=== PATIENT | male | born 1985 | race Caucasian/White ===

== ENCOUNTER 2016-12-06 19:48 | Emergency (ER) | payer MEDICAID ==
[~2016-12-06] VITALS: Ht 170.2 cm; Wt 70.0 kg
[2016-12-06 19:51] VITALS: Ht 170.2 cm; Wt 70.0 kg
[2016-12-06] MEDS ORDERED: SOD CHLORIDE 0.9% 1,000 ML IV STA (19:59)
[2016-12-06] MEDS ORDERED: LEVETIRACETAM 1000 MG (PMX) 100 ML IVPB ONE (20:00)
[2016-12-06 20:10] LABS: ADD SCAN DIFF NO
[2016-12-06 20:12] LABS: BASOPHIL # 0.1 10^3/ul (0.0-0.1); BASOPHILS % 0.8 % (0.0-2.0); EOSINOPHILS # 0.2 10^3/ul (0.0-0.5); EOSINOPHILS % 2.3 % (0.0-7.0); HEMATOCRIT 46.6 % (42.0-52.0); HEMOGLOBIN 15.2 g/dl (14.0-18.0); LYMPHOCYTES # 3.3 10^3/ul (0.8-2.9); LYMPHOCYTES % 34.5 % (15.0-51.0); MEAN CORPUSCULAR HEMOGLOBIN 28.7 pg (29.0-33.0); MEAN CORPUSCULAR HGB CONC 32.6 g/dl (32.0-37.0); MEAN CORPUSCULAR VOLUME 87.9 fl (82.0-101.0); MEAN PLATELET VOLUME 8.4 fl (7.4-10.4); MONOCYTE # 0.7 10^3/ul (0.3-0.9); NEUTROPHIL # 5.2 10^3/ul (1.6-7.5); PLATELET COUNT 291 10^3/UL (140-415); RED CELL DISTRIBUTION WIDTH 12.4 % (11.5-14.5); WHITE BLOOD COUNT 9.5 10^3/ul (4.8-10.8)
[2016-12-06 20:37] LABS: CALCIUM 9.4 mg/dl (8.4-10.2); CREATININE 0.89 mg/dl (0.61-1.24); POTASSIUM 4.2 mmol/L (3.5-5.1)
--- NOTE | 2016-12-06 20:38 | ERD ---
ER Documentation Chief Complaint Date/Time DATE: 12/06/16 TIME: 20:36 Chief Complaint witnessed tonic-clonic Sz while visiting in post-, hx epilepsy HPI Patient is a 31-year-old male with seizures who presents with a seizure. The patient had a code green called overhead as he was visiting his who just had a baby in the hospital. He had a seizure. He did not take his medications this morning. He did not hit his head. He is now back to his baseline per family. His primary doctor is at [facility]. Upon review of old medical records this is the patient's first visit to the emergency department. He denies fevers. ROS All systems reviewed and are negative except as per history of present illness. Allergies Allergies: Coded Allergies: No Known Drug Allergies (Verified Allergy, Unknown, 12/06/16) PMhx/Soc Positive for seizures FmHx Family History: No diabetes Physical Exam Vitals Vital Signs Date Time Temp Pulse Resp B/P Pulse Ox O2 Delivery O2 Flow Rate FiO2 12/06/16 19:51 98.4 111 26 135/95 100 Physical Exam Const: No acute distress Head: Atraumatic Eyes: Normal Conjunctiva ENT: Normal External Ears, Nose and Mouth. Neck: Full range of motion..~ No meningismus. Resp: Clear to auscultation bilaterally Cardio: Tachycardic rate without murmur Abd: Soft, non tender, non distended. Normal bowel sounds Skin: No petechiae or rashes Back: No midline or flank tenderness Ext: No cyanosis, or edema Neur: Awake and alert Psych: Normal Mood and Affect Result Diagram: 12/06/161999 Results 24 hrs Laboratory Tests Test 12/06/16 20:00 White Blood Count 9.510^3/ul Red Blood Count 5.3010^6/ul Hemoglobin 15.2g/dl Hematocrit 46.6% Mean Corpuscular Volume 87.9fl Mean Corpuscular Hemoglobin 28.7pg Mean Corpuscular Hemoglobin Concent 32.6g/dl Red Cell Distribution Width 12.4% Platelet Count 43377^3/UL Mean Platelet Volume 8.4fl Neutrophils % 55.0% Lymphocytes % 34.5% Monocytes % 7.0% Eosinophils % 2.3% Basophils % 0.8% Nucleated Red Blood Cells % 0.0/100WBC Neutrophils # 5.210^3/ul Lymphocytes # 3.310^3/ul Monocytes # 0.710^3/ul Eosinophils # 0.210^3/ul Basophils # 0.110^3/ul Nucleated Red Blood Cells # 0.010^3/ul Current Medications Medications (Trade) Dose Ordered Sig/Melany Route PRN Reason Start Time Stop Time Status Last Admin Dose Admin Sodium Chloride 1,000 ml @ 1,000 mls/hr Q1H STAT IV 12/06/16 19:59 12/06/16 20:58 12/06/16 20:07 Levetiracetam (Keppra 1,000mg/ 100ml (Pmx)) 100 ml @ 400 mls/hr ONCE ONCE IVPB 12/06/16 20:00 12/06/16 20:14 DC 12/06/16 20:20 Procedures/MDM Patient is a 31-year-old male presents with acute on chronic seizure. The patient has a normal CBC. Electrolytes are pending. If his electrodes are normal I believe outpatient management would be appropriate. I doubt intracranial hemorrhage or mass. I doubt meningitis. The patient will be given Keppra 1 g IV to load his Keppra and I told him not to miss any doses of his medications in the future. He can return for any worsening symptoms. Departure Diagnosis: Primary Impression: Seizure Condition: Fair Patient Instructions: Seizure, Recurrent [Adult] Referrals: Your doctor Additional Instructions: Llame al doctor MAANA y ramon hua EFREN PARA DENTRO DE 1-2 HOPPER.Dgale a la secretaria que nosotros le instruimos hacer esta efren.Avise o llame si ross condicin se empeora antes de la efren. Regresa aqui si peor o no mejor. VINCENT OWENS MD Dec 06, 2016 20:37
[2016-12-06 20:51] VITALS: BP 140/80; PULSE 86; RESP 16
[2016-12-06] MEDS ORDERED: LEVE-5 PO (21:00)
== END 2016-12-06 21:05 | disposition home or self-care (01) ==
LOC: E/R 19:48
DX: R56.9 Unspecified convulsions (principal); R40.2142 Coma scale, eyes open, spontaneous, at arrival to emergency department; R40.2252 Coma scale, best verbal response, oriented, at arrival to emergency department; R40.2362 Coma scale, best motor response, obeys commands, at arrival to emergency department
CPT/HCPCS: 36415; 80048; 85025; 96365; J1953; J7030; Z7502

== ENCOUNTER 2017-04-22 05:12 | Inpatient (IN) | payer MEDICAID ==
[~2017-04-22] VITALS: Ht 172.7 cm; Wt 65.9 kg
[~2017-04-22 05:12] MED LIST: LEVE-5 PO
[2017-04-22] MEDS ORDERED: ADENOSINE ONE (05:32)
[2017-04-22] MEDS ORDERED: SOD CHLORIDE 0.9% 1,000 ML IV STA (05:40)
[2017-04-22 05:42] VITALS: TEMP 98.1
[2017-04-22] MEDS ORDERED: MAGNESIUM SULFATE 2 GM/50 ML 50 ML IVPB ONE (06:00)
[2017-04-22] MEDS ORDERED: METO-335 PO (06:35)
[2017-04-22] MEDS ORDERED: ACET-141 PO (06:36)
--- NOTE | 2017-04-22 06:41 | ERD ---
ER Documentation Chief Complaint Chief Complaint palpitation HPI This is a 32-year-old male with a history of SVT on metoprolol, seizures who is presenting with palpitations this morning. He felt chest pressure, palpitations , and he could not break it on his own, so he came to the ER for further evaluation. When he initially arrived, the patient's heart rate was 212. However, prior to any intervention, the patient's heart rate broke to the 80s on its own. The patient initially endorsed feeling anxious, but this too has resolved. The patient did not have any trouble breathing. He was never diaphoretic. The patient denies lightheadedness or dizziness. The patient denies feeling sick recently. The patient denies fever or chills. The patient has had no headache or vision changes. The patient denies abdominal pain or changes to bowel movements or urination. The patient has had no focal deficits. The patient has had no weakness or numbness or tingling to the face or extremities. ROS All systems reviewed and are negative except as per history of present illness. Medications Home Meds Reported Medications Acetaminophen* (Acetaminophen*) 500 MG Extra Strength Tablet, 500 MG PO Q4H Y for PAIN AND OR ELEVATED TEMP, TAB 04/22/17 Metoprolol Succinate* (Toprol XL*) Unknown Strength Tab.sr.24h, PO DAILY, #30 TAB 04/22/17 Levetiracetam* (Keppra*) 500 Mg Tablet, 500 MG PO DAILY, TAB 12/06/16 Allergies Allergies: Coded Allergies: No Known Drug Allergies (Unverified Allergy, Unknown, 04/22/17) PMhx/Soc History of Surgery: No Anesthesia Reaction: No Hx Neurological Disorder: Yes (seizure) Hx Respiratory Disorders: No Hx Cardiac Disorders: Yes (hx of SVT, HTN) Hx Psychiatric Problems: No Hx Miscellaneous Medical Probl: No Hx Alcohol Use: No Hx Substance Use: No Hx Tobacco Use: No Smoking Status: Never smoker FmHx Family History: No diabetes Physical Exam Vitals Vital Signs Date Time Temp Pulse Resp B/P Pulse Ox O2 Delivery O2 Flow Rate FiO2 04/22/17 08:00 71 19 121/85 100 04/22/17 05:42 98.1 78 26 110/81 95 Room Air 04/22/17 05:15 97.3 212 20 133/70 99 Physical Exam Const: No apparent distress, well-developed, well-nourished Head: Atraumatic Eyes: Normal Conjunctiva. Extraocular movements intact. ENT: Normal External Ears, Nose and Mouth. Neck: Full range of motion. ~ No meningismus. Resp: Clear to auscultation bilaterally Cardio: Regular rate and rhythm, no murmurs Abd: Soft, non tender, non distended. Normal bowel sounds Skin: No petechiae or rashes Back: No midline or flank tenderness Ext: No cyanosis, or edema Neur: Awake and alert, oriented 4. Cranial nerves intact. No facial droop. Normal strength and sensation in all extremities. Coordination with finger to nose normal. Psych: Normal Mood and Affect Result Diagram: 04/22/1762904/22/17629 Results 24 hrs Laboratory Tests Test 04/22/17 06:30 04/22/17 06:56 White Blood Count 13.910^3/ul Red Blood Count 4.8410^6/ul Hemoglobin 13.8g/dl Hematocrit 42.0% Mean Corpuscular Volume 86.8fl Mean Corpuscular Hemoglobin 28.5pg Mean Corpuscular Hemoglobin Concent 32.9g/dl Red Cell Distribution Width 12.8% Platelet Count 88707^3/UL Mean Platelet Volume 8.7fl Neutrophils % 84.2% Lymphocytes % 11.0% Monocytes % 3.7% Eosinophils % 0.3% Basophils % 0.3% Nucleated Red Blood Cells % 0.0/100WBC Neutrophils # 11.710^3/ul Lymphocytes # 1.510^3/ul Monocytes # 0.510^3/ul Eosinophils # 0.010^3/ul Basophils # 0.010^3/ul Nucleated Red Blood Cells # 0.010^3/ul Sodium Level 144mmol/L Potassium Level 4.0mmol/L Chloride Level 106mmol/L Carbon Dioxide Level 25mmol/L Anion Gap 17 Blood Urea Nitrogen 16mg/dl Creatinine 1.03mg/dl Glucose Level 109mg/dl Calcium Level 8.7mg/dl Total Bilirubin 0.2mg/dl Direct Bilirubin 0.00mg/dl Indirect Bilirubin 0.2mg/dl Aspartate Amino Transf (AST/SGOT) 35IU/L Alanine Aminotransferase (ALT/SGPT) 43IU/L Alkaline Phosphatase 71IU/L Troponin I 0.359ng/ml Total Protein 7.0g/dl Albumin 4.3g/dl Globulin 2.70g/dl Albumin/Globulin Ratio 1.59 Lipase 208U/L Urine Color YELLOW Urine Clarity SLIGHTLY CLOUDY Urine pH 5.0 Urine Specific [place] 1.024 Urine Ketones NEGATIVEmg/dL Urine Nitrite NEGATIVEmg/dL Urine Bilirubin NEGATIVEmg/dL Urine Urobilinogen 1+mg/dL Urine Leukocyte Esterase NEGATIVELeu/ul Urine Microscopic RBC 0/HPF Urine Microscopic WBC 2/HPF Urine Bacteria FEW/HPF Urine Granular Casts FEW/HPF Urine Mucus FEW/HPF Urine Hemoglobin NEGATIVEmg/dL Urine Glucose NEGATIVEmg/dL Urine Total Protein 1+mg/dl Current Medications Medications (Trade) Dose Ordered Sig/Melany Route PRN Reason Start Time Stop Time Status Last Admin Dose Admin Sodium Chloride 1,000 ml @ 1,000 mls/hr Q1H STAT IV 04/22/17 05:40 04/22/17 06:39 DC 04/22/17 06:15 Magnesium Sulfate (Magnesium Sulfate 2 Gm/50 ml) 50 ml @ 25 mls/hr ONCE ONCE IVPB 04/22/17 06:00 04/22/17 07:59 DC 04/22/17 06:35 Aspirin (Aspirin) 324 mg ONCE ONCE PO 04/22/17 08:00 04/22/17 08:01 DC 04/22/17 08:05 Ondansetron HCl (Zofran Inj) 4 mg ER BRIDGE PRN IV NAUSEA AND/OR VOMITING 04/22/17 08:30 04/23/17 08:29 Acetaminophen (Tylenol Tab) 650 mg ER BRIDGE PRN PO MILD PAIN/FEVER 04/22/17 08:30 04/23/17 08:29 IV Flush (NS 3 ml) 3 ml PER PROTOCOL IV 04/22/17 09:30 Ondansetron HCl (Zofran Inj) 4 mg Q6H PRN IV NAUSEA AND/OR VOMITING 04/22/17 09:30 Acetaminophen (Tylenol Tab) 650 mg Q6H PRN PO PAIN LEVEL 1-3 OR FEVER 04/22/17 09:30 Acetaminophen/ Hydrocodone Bitart ([place] (5/325)) 1 tab Q6H PRN PO MODERATE PAIN LEVEL 4-6 04/22/17 09:30 Morphine Sulfate (morphine) 2 mg Q4H PRN IV SEVERE PAIN LEVEL 7-10 04/22/17 09:30 Docusate Sodium (Colace) 100 mg Q12H PRN PO CONSTIPATION 04/22/17 09:30 Magnesium Hydroxide (Milk Of Mag) 30 ml DAILY PRN PO CONSTIPATION 04/22/17 09:30 Sodium Biphosphate/ Sodium Phosphate (Fleet Enema) 133 ml DAILY PRN [place] CONSTIPATION 04/22/17 09:30 Heparin Sodium (Porcine) 5000 unit 5,000 unit Q12 SC 04/22/17 21:00 Sodium Chloride (1/2 NS) 1,000 ml @ 75 mls/hr [id number] IV 04/22/17 09:10 Lorazepam (Ativan) 0.5 mg Q6H PRN IV ANXIETY 04/22/17 09:30 Albuterol/ Ipratropium (Duoneb) 3 ml Q4H RESP THERAPY PRN HHN SHORTNESS OF BREATH 04/22/17 09:30 Hydralazine HCl (Apresoline) 10 mg Q6H PRN IV ELEVATED BLOOD PRESSURE 04/22/17 09:30 Clonidine (Catapres) 0.1 mg Q6H PRN PO ELEVATED BLOOD PRESSURE 04/22/17 09:30 Nitroglycerin (Nitroglycerin (Sl Tab) 0.4 Mg) 1 tab Q5M PRN SL ANGINA 04/22/17 09:30 Levetiracetam (Keppra) 500 mg DAILY PO 04/23/17 09:00 Metoprolol Succinate (Toprol Xl) 25 mg BID PO 04/22/17 21:00 Procedures/MDM MDM Patient's presentation warrants further investigation. Patient has a history of SVT, which broke on its own. We will obtain blood work to evaluate for metabolic etiology. An EKG was obtained before and after the patient's rhythm broke. Chest x-ray will also be obtained. The patient currently feels well. LABS The patient's blood work was obtained and reviewed. The patient seemed shows mild leukocytosis with left shift. That said, the patient is afebrile, and I do not suspect a systemic infection. He has no infectious symptoms at this time. The patient is mildly anemic today, which does not require emergent treatment. The patient's platelet count is unremarkable. The patient's CMP shows no signs of metabolic or electrolyte abnormality. The patient has normal renal and hepatic function testing. Trop elevated at 0.359. EKG EKG read by me at 05:22: Rate/Rhythm: SVT at a rate of 209 Intervals: No obvious P wave, QRS and QTc unremarkable [place]: Left shifted Impression: SVT, No evidence of ischemia. EKG read by me at 05:33: Rate/Rhythm: Regular rate and rhythm at a rate of 80bpm Intervals: Normal [place]: Left shifted TWI in leads I and aVL, no other lateral leads. ?Peaked [place] in V3-4 Incomplete RBBB LVH with Repolarization abnormality IMAGING CXR FINDINGS: The cardiac silhouette is normal. No focal infiltrates are noted. There is mild nonspecific prominence of pulmonary markings. No pneumothorax is noted. No hilar abnormalities are identifiable. IMPRESSION: 1. No focal infiltrates noted. 2. Mild nonspecific prominence of pulmonary markings. Electronically viewed and signed by .aJce Otoole MD, MD on 04/22/2017 07: 57 TREATMENT/DISPOSITION The patient does not appear to have been evaluated here for this in the past. I do suspect demand ischemia given that he was in SVT for possibly 3 hours, I do not have any previous EKGs to compare these EKGs today. The patient has an elevated troponin with ST depressions in leads I and aVL. I do feel that this requires further evaluation in the hospital. The patient will be admitted for further evaluation and management. The patient was given aspirin in the emergency department. The patient's vital signs remained stable throughout assessment after his SVT broke. The patient be admitted to the panel service as his insurance stipulates. Dr. Harry Montaño accepted the patient at 8:23 AM on April 22, 2017. Departure Diagnosis: Primary Impression: Paroxysmal SVT (supraventricular tachycardia) Additional Impression: Heart palpitations Condition: TANNA Kearns MD Apr 22, 2017 06:41
--- NOTE | 2017-04-22 07:57 | RADRPT ---
PROCEDURE: Chest x-ray CLINICAL INDICATION: Infiltrate. Congestion TECHNIQUE: One-view frontal. COMPARISON: None available FINDINGS: The cardiac silhouette is normal. No focal infiltrates are noted. There is mild nonspecific prominence of pulmonary markings. No pneumothorax is noted. No hilar abnormalities are identifiable. IMPRESSION: 1. No focal infiltrates noted. 2. Mild nonspecific prominence of pulmonary markings. RPTAT: HGSG .Jace Otoole MD, MD Date Time Electronically viewed and signed by .Jace Otoole MD, on 04/22/2017 07:57 .G/
[2017-04-22] MEDS ORDERED: ASPIRIN 81 MG TAB PO ONE (08:00)
[2017-04-22] MEDS ORDERED: ACETAMINOPHEN 325 MG TAB PO PRN ×2 (08:30→09:30)
[2017-04-22] MEDS ORDERED: ONDANSETRON 4 MG INJ IV PRN ×2 (08:30→09:30)
[2017-04-22] MEDS: SOD CHLORIDE 0.45% 1,000 ML IV SCH (09:10)
[2017-04-22] MEDS ORDERED: NACL 0.9% 3 ML SYG IV SCH (09:30)
[2017-04-22] MEDS ORDERED: NA PHOSPHATE/BIPHOS 133 ML ENEMA PR PRN (09:30)
[2017-04-22] MEDS ORDERED: ALBUTEROL/IPRATROPIUM (NEB) 3 ML AMP HHN PRN (09:30)
[2017-04-22] MEDS ORDERED: NITROGLYCERIN (SL) 0.4 MG TAB SL PRN (09:30)
[2017-04-22] MEDS ORDERED: HYDROCODONE/APAP (5/325) TAB PO PRN (09:30)
[2017-04-22] MEDS ORDERED: LORAZEPAM 2 MG INJ IV PRN (09:30)
[2017-04-22] MEDS ORDERED: MAGNESIUM HYDROXIDE 30ML CUP PO PRN (09:30)
[2017-04-22] MEDS ORDERED: DOCUSATE SODIUM 100 MG CAP PO PRN (09:30)
[2017-04-22] MEDS ORDERED: morphine 2 MG INJ IV PRN (09:30)
[2017-04-22] MEDS ORDERED: hydrALAzine 20 MG INJ IV PRN (09:30)
[2017-04-22 11:45] VITALS: Ht 172.7 cm; Wt 65.9 kg
[2017-04-22 11:46] VITALS: BP 136/79; PULSE 65; RESP 20
[2017-04-22] MEDS ORDERED: ASPIRIN (EC) 81 MG TAB PO SCH (14:30)
[2017-04-22] MEDS ORDERED: ENOXAPARIN 100 MG/ML SYG SC SCH (15:30)
--- NOTE | 2017-04-22 16:11 | HP ---
DATE OF ADMISSION: 04/22/2017 CHIEF COMPLAINT: Chest pressure and palpitation. HISTORY OF PRESENT ILLNESS: A 32-year-old male with past medical history of seizure, possible hypertension, and prior SVT, who was feeling palpitations and chest pressure that began 24 hours ago. He had some vomiting symptoms, nonbilious, nonbloody. Denied any nausea. No shortness of breath. No diarrhea or constipation. No upper or lower GI bleeding. No abdominal pain. No headaches or dizziness. He was concerned though about his palpitations and chest pressure and he decided to come into the ER. When he initially arrived, his heart rate was found to be in the 200 to 210 range without any intervention. However, the patient's heart rate came down to around 80 on its own. He was thought to be in SVT, but again, this appeared to break by itself. No sweating symptoms as well. The patient states he was last treated at [facility]. He believes he made a visit to the ER about 3 months ago and has been taking as needed metoprolol at home. He does not take it every day, and when these symptoms began 24 hours, he also took a dose of metoprolol that did not relieve his symptoms. PAST MEDICAL HISTORY: As above. ALLERGIES: NO KNOWN DRUG ALLERGIES. MEDICATIONS: Home medications, Toprol XL unknown strength 1 tab daily p.r.n., Tylenol 500 mg q.4 p.r.n., Keppra 500 mg daily. PAST SURGICAL HISTORY: None. SOCIAL HISTORY: Negative for smoking, drinking, or IV drug abuse. He does drink 1 cup of coffee, he has been doing that every day for many years. FAMILY HISTORY: Noncontributory. PHYSICAL EXAMINATION: VITAL SIGNS: Today, T-max 98.1, pulse 78 to 212, respirations 19 to 26, blood pressure 110 to 133 systolic over 81 to 70 20 diastolic, sating at 95 to 99 percent on room air. GENERAL: The patient is lying in bed, answers question appropriately, no acute distress. HEENT: Pupils equal, round, react to light. Extraocular muscles intact. NECK: Supple. No thyromegaly. LUNGS: Clear to auscultation bilaterally. CARDIOVASCULAR: S1, S2 heard. No rubs or gallops. ABDOMEN: Soft, nontender, nondistended. Normal bowel sounds. No rebound or guarding. MUSCULOSKELETAL: No lower extremity bilaterally. NEUROLOGIC: No focal deficits. LABORATORY DATA: WBC 13.9, hemoglobin 13.8, hematocrit 42.0, platelets of 241. Comprehensive metabolic panel is normal. First troponin is elevated at 0.359, 2nd is 3.76. He had chest x- ray that showed no focal infiltrates. ASSESSMENT AND PLAN: A 32-year-old male coming in with chest pressure and palpitations with signs of supraventricular tachycardia and possible non-ST elevation myocardial infarction. 1. Palpitations, again likely secondary to patient's supraventricular tachycardia and possibly non-ST elevation myocardial infarction. Will admit the patient to telemetry floor and get a cardiology consult. I am going to put him on Lovenox 1 mg/kg b.i.d. Consider high-dose aspirin. Trend his troponins as well. Put him on high dose Lipitor, and also put him on beta danita, nitroglycerin and morphine p.r.n. as well. Oxygen as needed. High dose aspirin. Check TSH, A1c, lipid panel. Continue monitor on telemetry. Follow Cardiology recommendations. Check a 2D echocardiogram as well. 2. History of seizures. Continue Keppra. No signs of any seizure activity. 3. Hypertension. Blood pressure is presently stable, see number 1. 4. Continue current cardiac medications. Dictated By: Alexys Damon MD /dago/lucianoc /Document#: [id number]
[2017-04-22 16:50] VITALS: BP 110/70; PULSE 86; RESP 20
[2017-04-22 17:50] VITALS: BP 120/83; PULSE 75; RESP 20
--- NOTE | 2017-04-22 18:13 | CONS ---
Date/Time of Note Date/Time of Note DATE: 04/22/17 TIME: 18:04 Assessment/Plan Assessment/Plan Chief Complaint/Hosp Course Assessment: NSTEMI Paroxysmal supraventricular tachycardia Hypertension Seizure disorder Recommendations: -continue full anticoagulation with Lovenox -continue aspirin at 325mg daily -continue atorvastatin 80mg daily, follow up lipid panel -continue metoprolol 25mg BID -follow up transthoracic echocardiogram -arrange coronary angiography Problems: Consultation Date/Type/Reason Admit Date/Time Apr 22, 2017 at 11:28 Type of Consultation: Cardiology Reason for Consultation elevated troponin, supraventricular tachycardia Hx of Present Illness The patient is a 32 year-old male who presented with acute onset of palpitations and chest pressure. In the emergency department, he was noted to be in a supraventricular tachycardia with heart rates in the 200s. He spontaneously reverted to normal sinus rhythm before receiving any interventions. His symptoms have resolved as well and he is currently without chest pain. Subsequent EKG showed normal sinus rhythm, left ventricular hypertrophy, left axis deviation, and inferior Q waves. Troponins elevated up to 4.5. He has a history of paroxysmal supraventricular tachycardia for which he takes metoprolol as needed. 14 point review of systems negative other than per HPI. Past Medical History Paroxysmal supraventricular tachycardia Seizure disorder Past Surgical History Past Surgical Hx: no surgical history Family History Significant Family History: no pertinent family hx (denies heart disease) Social History Alcohol Use: occasionally Smoking Status: Never smoker Exam/Review of Systems Vital Signs Vitals Vital Signs Date Time Temp Pulse Resp B/P Pulse Ox O2 Delivery O2 Flow Rate FiO2 04/22/17 17:50 97.9 75 20 120/83 96 Room Air Exam Constitutional: alert, well developed Psych: nl mood/affect, no complaints Head: atraumatic, normocephalic Eyes: nl conjunctiva, nl lids ENMT: nl external ears & nose, nl nasal mucosa & septum Neck: non-tender, supple, No jvd Respiratory: clear to auscultation, normal air movement Cardiovascular: regular rate and rhythm, systolic murmur Gastrointestinal: non-tender, soft Musculoskeletal: nl extremities to inspection, No joint tenderness Extremities: No clubbing, No cyanosis, No edema Neurological: nl mental status, nl speech Skin: nl turgor Results Result Diagram: 04/22/17 0630 04/22/17 0630 Results 24 hrs Laboratory Tests Test 04/22/17 06:30 04/22/17 06:56 04/22/17 12:08 04/22/17 14:49 White Blood Count 13.9 #H Red Blood Count 4.84 Hemoglobin 13.8 L Hematocrit 42.0 Mean Corpuscular Volume 86.8 Mean Corpuscular Hemoglobin 28.5 L Mean Corpuscular Hemoglobin Concent 32.9 Red Cell Distribution Width 12.8 Platelet Count 241 Mean Platelet Volume 8.7 Neutrophils % 84.2 H Lymphocytes % 11.0 L Monocytes % 3.7 Eosinophils % 0.3 Basophils % 0.3 Nucleated Red Blood Cells % 0.0 Neutrophils # 11.7 H Lymphocytes # 1.5 Monocytes # 0.5 Eosinophils # 0.0 Basophils # 0.0 Nucleated Red Blood Cells # 0.0 Sodium Level 144 Potassium Level 4.0 Chloride Level 106 Carbon Dioxide Level 25 Anion Gap 17 H Blood Urea Nitrogen 16 Creatinine 1.03 Glucose Level 109 Calcium Level 8.7 Total Bilirubin 0.2 Direct Bilirubin 0.00 Indirect Bilirubin 0.2 Aspartate Amino Transf (AST/SGOT) 35 Alanine Aminotransferase (ALT/SGPT) 43 Alkaline Phosphatase 71 Troponin I 0.359 *H 3.760 *H 4.560 *H Total Protein 7.0 Albumin 4.3 Globulin 2.70 Albumin/Globulin Ratio 1.59 Lipase 208 Urine Color YELLOW Urine Clarity SLIGHTLY CLOUDY A Urine pH 5.0 Urine Specific [place] 1.024 Urine Ketones NEGATIVE Urine Nitrite NEGATIVE Urine Bilirubin NEGATIVE Urine Urobilinogen 1+ H Urine Leukocyte Esterase NEGATIVE Urine Microscopic RBC 0 Urine Microscopic WBC 2 Urine Bacteria FEW A Urine Granular Casts FEW A Urine Mucus FEW A Urine Hemoglobin NEGATIVE Urine Glucose NEGATIVE Urine Total Protein 1+ H Creatine Kinase 181 205 H Creatine Kinase Index 12.9 13.3 Creatinine Kinase MB (Mass) 23.40 H 27.20 H Free Thyroxine 1.08 Medications Medications Current Medications Ondansetron HCl (Zofran Inj) 4 mg Q6H PRN IV NAUSEA AND/OR VOMITING; Start at 09:30 Acetaminophen (Tylenol Tab) 650 mg Q6H PRN PO PAIN LEVEL 1-3 OR FEVER; Start 04/22/17 at 09:30 Acetaminophen/ Hydrocodone Bitart ([place] (5/325)) 1 tab Q6H PRN PO MODERATE PAIN LEVEL 4-6; Start 04/22/17 at 09:30 Morphine Sulfate (morphine) 2 mg Q4H PRN IV SEVERE PAIN LEVEL 7-10; Start at 09:30 Docusate Sodium (Colace) 100 mg Q12H PRN PO CONSTIPATION; Start 04/22/17 at 09 :30 Magnesium Hydroxide (Milk Of Mag) 30 ml DAILY PRN PO CONSTIPATION; Start 04/22 at 09:30 Sodium Biphosphate/ Sodium Phosphate 133 ml 133 ml DAILY PRN [place] CONSTIPATION; Start 04/22/17 at 09:30 Sodium Chloride (1/2 NS) 1,000 ml @ 75 mls/hr [id number] IV Last administered on 04/22/17 09:10; Admin Dose 75 MLS/HR; Start 04/22/17 at 09:10 Lorazepam (Ativan) 0.5 mg Q6H PRN IV ANXIETY; Start 04/22/17 at 09:30 Hydralazine HCl (Apresoline) 10 mg Q6H PRN IV ELEVATED BLOOD PRESSURE; Start 04/22/17 at 09:30 Clonidine (Catapres) 0.1 mg Q6H PRN PO ELEVATED BLOOD PRESSURE; Start at 09:30 Nitroglycerin (Nitroglycerin (Sl Tab) 0.4 Mg) 1 tab Q5M PRN SL ANGINA; Start 04/22/17 at 09:30 Levetiracetam (Keppra) 500 mg DAILY PO ; Start 04/23/17 at 09:00 Metoprolol Succinate (Toprol Xl) 25 mg BID PO ; Start 04/22/17 at 21:00 Enoxaparin Sodium (Lovenox) 65 mg Q12 SC Last administered on 04/22/17 16:48 ; Admin Dose 65 MG; Start 04/22/17 at 15:30 Atorvastatin Calcium (Lipitor) 80 mg HS PO ; Start 04/22/17 at 21:00 Aspirin (Halfprin) 162 mg DAILY PO ; Start 04/23/17 at 09:00 KIMBERLEY JEFFERSON MD Apr 22, 2017 18:12
[2017-04-22 19:41] VITALS: BP 127/81; RESP 18
[2017-04-22 20:18] VITALS: PULSE 72
[2017-04-22] MEDS: METOPROLOL 25 MG TAB PO SCH (20:27)
[2017-04-22] MEDS: ATORVASTATIN 80 MG TAB PO SCH (20:27)
[2017-04-22] MEDS ORDERED: HEPARIN 5,000 UNIT/0.5 ML VIAL SC SCH (21:00)
[2017-04-22] MEDS ORDERED: METOPROLOL (XL) 25 MG TAB PO SCH (21:00)
[2017-04-22] MEDS: LEVETIRACETAM 500 MG TAB PO SCH (22:34)
[2017-04-23] VITALS (13 sets, daily range): BP systolic 98–137; BP diastolic 58–82; PULSE 54–77; RESP 18–19
[2017-04-23] MEDS: ENOXAPARIN 80 MG/0.8 ML SYG SC SCH ×2 (01:12→08:48)
[2017-04-23] MEDS: SOD CHLORIDE 0.45% 1,000 ML IV SCH ×2 (02:47→11:50)
[2017-04-23] MEDS: METOPROLOL 25 MG TAB PO SCH ×2 (08:47→21:00)
[2017-04-23] MEDS: ASPIRIN (EC) 325 MG TAB PO SCH (08:47)
[2017-04-23] MEDS: LEVETIRACETAM 500 MG TAB PO SCH ×2 (08:47→20:15)
[2017-04-23] MEDS ORDERED: ASPIRIN (EC) 81 MG TAB PO SCH (09:00)
[2017-04-23] MEDS ORDERED: LEVETIRACETAM 500 MG TAB PO SCH (09:00)
--- NOTE | 2017-04-23 13:10 | PN ---
Date/Time of Note Date/Time of Note DATE: 04/23/17 TIME: 13:08 Assessment/Plan VTE Prophylaxis VTE Prophylaxis Intervention: LMWH Lines/Catheters IV Catheter Type (from [facility]): [place] Urinary Cath still in place: No Assessment/Plan Chief Complaint/Hosp Course ASSESSMENT AND PLAN: 32-year-old male coming in with chest pressure and palpitations with signs of supraventricular tachycardia and possible non-ST elevation myocardial infarction. 1. Palpitations, again likely secondary to patient's supraventricular tachycardia and possibly non-ST elevation myocardial infarction. Heart rate more stable now. -Continue Lovenox 1 mg/kg b.i.d. Consider high-dose aspirin. Trend his troponins as well. - high dose Lipitor, beta danita, nitroglycerin and morphine p.r.n. as well. Oxygen as needed. - High dose aspirin, follow-up results of echocardiogram -Likely will need cardiac angiogram per recognition for cardiology team 2. History of seizures. Continue Keppra. No signs of any seizure activity. 3. Hypertension. Blood pressure is presently stable, see number 1. 4. Continue current cardiac medications. Problems: Subjective 24 Hr Interval Summary Free Text/Dictation Patient seen by cardiology team yesterday. No acute events overnight. Exam/Review of Systems Vital Signs Vitals Vital Signs Date Time Temp Pulse Resp B/P Pulse Ox O2 Delivery O2 Flow Rate FiO2 04/23/17 12:55 59 04/23/17 12:12 98.6 18 121/79 98 04/22/17 17:50 Room Air Intake and Output 04/22/17 04/22/17 04/23/17 15:00 23:00 07:00 Intake Total 1320 ml Balance 1320 ml Exam GENERAL: The patient is lying in bed, answers question appropriately, no acute distress. HEENT: Pupils equal, round, react to light. Extraocular muscles intact. NECK: Supple. No thyromegaly. LUNGS: Clear to auscultation bilaterally. CARDIOVASCULAR: S1, S2 heard. No rubs or gallops. ABDOMEN: Soft, nontender, nondistended. Normal bowel sounds. No rebound or guarding. MUSCULOSKELETAL: No lower extremity bilaterally. NEUROLOGIC: No focal deficits. Results Result Diagram: 04/23/17 0733 04/23/17 0733 Results 24 hrs Laboratory Tests Test 04/22/17 14:49 04/22/17 18:50 04/22/17 22:52 04/23/17 07:33 Creatine Kinase 205 H Creatine Kinase Index 13.3 Creatinine Kinase MB (Mass) 27.20 H Troponin I 4.560 *H 5.760 *H 5.250 *H 2.960 *H White Blood Count 8.1 # Red Blood Count 4.73 Hemoglobin 13.5 L Hematocrit 41.3 L Mean Corpuscular Volume 87.3 Mean Corpuscular Hemoglobin 28.5 L Mean Corpuscular Hemoglobin Concent 32.7 Red Cell Distribution Width 12.5 Platelet Count 241 Mean Platelet Volume 8.9 Neutrophils % 64.6 Lymphocytes % 27.5 Monocytes % 4.9 Eosinophils % 2.0 Basophils % 0.6 Nucleated Red Blood Cells % 0.0 Neutrophils # 5.3 Lymphocytes # 2.2 Monocytes # 0.4 Eosinophils # 0.2 Basophils # 0.1 Nucleated Red Blood Cells # 0.0 Sodium Level 142 Potassium Level 5.0 Chloride Level 109 Carbon Dioxide Level 26 Anion Gap 12 Blood Urea Nitrogen 16 Creatinine 0.76 Glucose Level 102 Hemoglobin A1c 5.6 Calcium Level 8.6 Phosphorus Level 3.0 Magnesium Level 2.0 Triglycerides Level 64 Cholesterol Level 140 LDL Cholesterol, Calculated 85 HDL Cholesterol 42 Cholesterol/HDL Ratio 3.3 Thyroid Stimulating Hormone (TSH) 0.476 Medications Medications Current Medications Ondansetron HCl (Zofran Inj) 4 mg Q6H PRN IV NAUSEA AND/OR VOMITING; Start at 09:30 Acetaminophen (Tylenol Tab) 650 mg Q6H PRN PO PAIN LEVEL 1-3 OR FEVER; Start 04/22/17 at 09:30 Acetaminophen/ Hydrocodone Bitart ([place] (5/325)) 1 tab Q6H PRN PO MODERATE PAIN LEVEL 4-6; Start 04/22/17 at 09:30 Morphine Sulfate (morphine) 2 mg Q4H PRN IV SEVERE PAIN LEVEL 7-10; Start at 09:30 Docusate Sodium (Colace) 100 mg Q12H PRN PO CONSTIPATION; Start 04/22/17 at 09 :30 Magnesium Hydroxide (Milk Of Mag) 30 ml DAILY PRN PO CONSTIPATION; Start 04/22 at 09:30 Sodium Biphosphate/ Sodium Phosphate (Fleet Enema) 133 ml DAILY PRN [place] CONSTIPATION; Start 04/22/17 at 09:30 Lorazepam (Ativan) 0.5 mg Q6H PRN IV ANXIETY; Start 04/22/17 at 09:30 Hydralazine HCl (Apresoline) 10 mg Q6H PRN IV ELEVATED BLOOD PRESSURE; Start 04/22/17 at 09:30 Clonidine (Catapres) 0.1 mg Q6H PRN PO ELEVATED BLOOD PRESSURE; Start at 09:30 Nitroglycerin (Nitroglycerin (Sl Tab) 0.4 Mg) 1 tab Q5M PRN SL ANGINA; Start 04/22/17 at 09:30 Atorvastatin Calcium (Lipitor) 80 mg HS PO Last administered on 04/22/17 20: 27; Admin Dose 80 MG; Start 04/22/17 at 21:00 Aspirin (Ecotrin) 325 mg DAILY PO Last administered on 04/23/17 08:47; Admin Dose 325 MG; Start 04/23/17 at 09:00 Metoprolol Tartrate (Lopressor) 25 mg BID PO Last administered on 04/22/17 20 :27; Admin Dose 25 MG; Start 04/22/17 at 21:00 Enoxaparin Sodium (Lovenox) 65 mg Q12 SC Last administered on 04/23/17 08:48 ; Admin Dose 65 MG; Start 04/23/17 at 01:00 Levetiracetam (Keppra) 500 mg BID PO Last administered on 04/23/17 08:47; Admin Dose 500 MG; Start 04/22/17 at 22:30 SHAUNA ALAS Apr 23, 2017 13:10
--- NOTE | 2017-04-23 18:39 | CONS ---
Date/Time of Note Date/Time of Note DATE: 04/23/17 TIME: 18:33 Assessment/Plan Assessment/Plan Chief Complaint/Hosp Course Assessment: Congenital heart disease - abnormal echocardiogram NSTEMI Paroxysmal supraventricular tachycardia Hypertension Seizure disorder Recommendations: -coronary angiography tomorrow -will review echocardiogram with other cardiologists to clarify nature of congenital heart disease -hold Lovenox -continue aspirin at 325mg daily -continue atorvastatin 80mg daily for now, can likely discontinue if no coronary artery disease -continue metoprolol 25mg BID Problems: Consultation Date/Type/Reason Admit Date/Time Apr 22, 2017 at 11:28 Initial Consult Date Type of Consultation: Cardiology 24 HR Interval Summary Free Text/Dictation No further chest pain or palpitations. No further supraventricular tachycardia. Troponin peaked at 5.7 and downtrending. Detailed Summary Additional Comments 14 point review of systems without changes. Exam/Review of Systems Vital Signs Vitals Vital Signs Date Time Temp Pulse Resp B/P Pulse Ox O2 Delivery O2 Flow Rate FiO2 04/23/17 16:35 98.0 67 18 112/68 98 04/22/17 17:50 Room Air Intake and Output 04/22/17 04/22/17 04/23/17 15:00 23:00 07:00 Intake Total 1320 ml Balance 1320 ml Exam Constitutional: alert, well developed Psych: nl mood/affect, no complaints Head: atraumatic, normocephalic Eyes: nl conjunctiva, nl lids ENMT: nl external ears & nose, nl nasal mucosa & septum Neck: non-tender, supple, No jvd Respiratory: clear to auscultation, normal air movement Cardiovascular: regular rate and rhythm, systolic murmur Gastrointestinal: non-tender, soft Musculoskeletal: nl extremities to inspection, No joint tenderness Extremities: No clubbing, No cyanosis, No edema Neurological: nl mental status, nl speech Skin: nl turgor Results Result Diagram: 04/23/17 0733 04/23/17 0733 Results 24 hrs Laboratory Tests Test 04/22/17 18:50 04/22/17 22:52 04/23/17 07:33 Troponin I 5.760 *H 5.250 *H 2.960 *H White Blood Count 8.1 # Red Blood Count 4.73 Hemoglobin 13.5 L Hematocrit 41.3 L Mean Corpuscular Volume 87.3 Mean Corpuscular Hemoglobin 28.5 L Mean Corpuscular Hemoglobin Concent 32.7 Red Cell Distribution Width 12.5 Platelet Count 241 Mean Platelet Volume 8.9 Neutrophils % 64.6 Lymphocytes % 27.5 Monocytes % 4.9 Eosinophils % 2.0 Basophils % 0.6 Nucleated Red Blood Cells % 0.0 Neutrophils # 5.3 Lymphocytes # 2.2 Monocytes # 0.4 Eosinophils # 0.2 Basophils # 0.1 Nucleated Red Blood Cells # 0.0 Sodium Level 142 Potassium Level 5.0 Chloride Level 109 Carbon Dioxide Level 26 Anion Gap 12 Blood Urea Nitrogen 16 Creatinine 0.76 Glucose Level 102 Hemoglobin A1c 5.6 Calcium Level 8.6 Phosphorus Level 3.0 Magnesium Level 2.0 Triglycerides Level 64 Cholesterol Level 140 LDL Cholesterol, Calculated 85 HDL Cholesterol 42 Cholesterol/HDL Ratio 3.3 Thyroid Stimulating Hormone (TSH) 0.476 Medications Medications Current Medications Ondansetron HCl (Zofran Inj) 4 mg Q6H PRN IV NAUSEA AND/OR VOMITING; Start at 09:30 Acetaminophen (Tylenol Tab) 650 mg Q6H PRN PO PAIN LEVEL 1-3 OR FEVER; Start 04/22/17 at 09:30 Acetaminophen/ Hydrocodone Bitart ([place] (5/325)) 1 tab Q6H PRN PO MODERATE PAIN LEVEL 4-6; Start 04/22/17 at 09:30 Morphine Sulfate (morphine) 2 mg Q4H PRN IV SEVERE PAIN LEVEL 7-10; Start at 09:30 Docusate Sodium (Colace) 100 mg Q12H PRN PO CONSTIPATION; Start 04/22/17 at 09 :30 Magnesium Hydroxide (Milk Of Mag) 30 ml DAILY PRN PO CONSTIPATION; Start 04/22 at 09:30 Sodium Biphosphate/ Sodium Phosphate (Fleet Enema) 133 ml DAILY PRN [place] CONSTIPATION; Start 04/22/17 at 09:30 Lorazepam (Ativan) 0.5 mg Q6H PRN IV ANXIETY; Start 04/22/17 at 09:30 Hydralazine HCl (Apresoline) 10 mg Q6H PRN IV ELEVATED BLOOD PRESSURE; Start 04/22/17 at 09:30 Clonidine (Catapres) 0.1 mg Q6H PRN PO ELEVATED BLOOD PRESSURE; Start at 09:30 Nitroglycerin (Nitroglycerin (Sl Tab) 0.4 Mg) 1 tab Q5M PRN SL ANGINA; Start 04/22/17 at 09:30 Atorvastatin Calcium (Lipitor) 80 mg HS PO Last administered on 04/22/17 20: 27; Admin Dose 80 MG; Start 04/22/17 at 21:00 Aspirin (Ecotrin) 325 mg DAILY PO Last administered on 04/23/17 08:47; Admin Dose 325 MG; Start 04/23/17 at 09:00 Metoprolol Tartrate (Lopressor) 25 mg BID PO Last administered on 04/22/17 20 :27; Admin Dose 25 MG; Start 04/22/17 at 21:00 Enoxaparin Sodium (Lovenox) 65 mg Q12 SC Last administered on 04/23/17 08:48 ; Admin Dose 65 MG; Start 04/23/17 at 01:00 Levetiracetam (Keppra) 500 mg BID PO Last administered on 04/23/17 08:47; Admin Dose 500 MG; Start 04/22/17 at 22:30 KIMBERLEY JEFFERSON MD Apr 23, 2017 18:39
[2017-04-23] MEDS: ATORVASTATIN 80 MG TAB PO SCH (20:15)
[2017-04-24] VITALS (24 sets, daily range): BP systolic 98–122; BP diastolic 54–85; PULSE 40–114; RESP 12–20
[2017-04-24] MEDS: SOD CHLORIDE 0.9% 1,000 ML IV SCH ×2 (00:01→11:01)
[2017-04-24] MEDS: ASPIRIN (EC) 325 MG TAB PO SCH (08:40)
[2017-04-24] MEDS: LEVETIRACETAM 500 MG TAB PO SCH ×2 (08:40→20:18)
[2017-04-24] MEDS: METOPROLOL 25 MG TAB PO SCH ×2 (08:41→20:18)
[2017-04-24] MEDS ORDERED: MIDAZOLAM 1 MG/ML 2 ML INJ ONE (12:56)
[2017-04-24] MEDS ORDERED: FENTAnyl 50 MCG/ML VIAL ONE (12:56)
[2017-04-24] MEDS ORDERED: LIDOCAINE 1% (MDV) 20 ML INJ ONE (12:57)
[2017-04-24] MEDS ORDERED: IODIXANOL LOCM 100 ML BTL ONE ×2 (12:57→14:34)
[2017-04-24] MEDS ORDERED: SOD CHLORIDE 0.9% 1,000 ML IV SCH (14:45)
--- NOTE | 2017-04-24 14:46 | OPR ---
Date/Time of Note Date/Time of Note DATE: 04/24/17 TIME: 14:46 Operative Report Procedure Date: Apr 24, 2017 Preoperative Diagnosis NSTEMI,congenital heart disease Postoperative Diagnosis NSTEMI, congenital heart disease Surgeon see signature line Hotel Superintendent none Anesthesia Type: moderate sedation Estimated Blood Loss: minimal Transfusion none Specimen none Grafts/Implants none Complications none Procedure Description Procedure Date: Skip Tracer/surgeon:Gerson Calloway MD. Procedures Performed: 1)Left heart catheterization with selective left and right coronary angiography. 2)Left ventricle angiography 3)Right heart cath 4)Aortogram 5)right femoral angiography with Perclose closure device Pre-operative Diagnosis:NSTEMI, congenital hear disease Post-operative Diagnosis:same Indications: 32 yo M with no known prior cardiac history who presented with chest pain and palpitations. He was found to have an SVT as well as NSTEMI with trop up to 5. A cardiac cath was recommended for coronary evaluation. Upon my review of the echocardiogram, I am not certain of the exact anatomy but the aorta appears to be anterior to the PA and so there is concern for transposition. 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 The pt does not know of his condition and has been active during his life and participated in sports without symptoms. A left and right heart cath was done to further evaluate the pt's condition. Description of Procedure: After informed consent, the patient was brought to the cardiac catheterization lab. The procedure site was prepped and draped in usual manner. The patient was premedicated with versed 1 mg and fentanyl 25 mcg. 10 mL lidocaine was injected into the right groin. Next using the Seldinger technique, the 6 setswana sheath was inserted into the right femoral artery and 7 setswana into the right femoral vein. Next using the JL4, selective angiography of the what appears to be just the circumflex artery was obtained. Next the RCA was attempted top be selectively engaged but despite multiple catheters, only nonselective angiography could be obtained.The pigtail was then advanced into the ventricle and hemodynamics obtained. Left ventricle angiography was obtained in [place] and [place] views. Next an aortogram was also done but did not show a vessel in the LAD territory. Next all equipment was removed and hemostasis was obtained by Perclose for the artery and manual pressure for the vein. Findings: Anatomy/Hemodynamics: LAD: could not be found by selective, nonselective, or aortogram. ?anomalous from unclear origin (?from pulmonary artery) Circumflex: large dominant vessel covering the inferior and inferolateral territory. Otherwise normal Obtuse marginal:normal RCA:small, nondominant, normal LV angiography both in [place] and [place]: Dilated systemic ventricle which visually appears to be the RV. No VSD. EF ~45% Aortogram: no aortic regurgitation. No vessel seen supplying the LAD territory Systemic ventricle to aorta without gradient LVEDP: 1 mmHg Right heart cath: RA 7,6 (4) RV 38/1, EDP 5 Unable to advance to the PA. A wire was briefly used and caused SVT with initial rate >150 but then dropped back to ~105bpm. RA pressure wave form was different (elevated and large V wave) likely from the slow SVT but an echo was obtained to make sure the wire did not cause complications. No effusion was noted Contrast used:220 mL Fluoroscopy time: Estimated blood loss<10 mL. Specimen: none Grafts/implants: none Complications: none Assessment: Congenital heart disease: ?congenitally corrected TGA. Needs better eval by CT NSTEMI: normal Cx and RCA. LAD could not be engaged. Cardiac CT to eval SVT Plan: -cardiac CT for better anatomic clarification and to evaluate LAD territory GERSON CALLOWAY Apr 24, 2017 14:46
--- NOTE | 2017-04-24 14:46 | OPR ---
Date/Time of Note Date/Time of Note DATE: 04/24/17 TIME: 14:46 Operative Report Procedure Date: Apr 24, 2017 Preoperative Diagnosis NSTEMI,congenital heart disease Postoperative Diagnosis NSTEMI, congenital heart disease Surgeon see signature line Global Risk Management Director none Anesthesia Type: moderate sedation Estimated Blood Loss: minimal Transfusion none Specimen none Grafts/Implants none Complications none Procedure Description Procedure Date: Director Of Purchasing/surgeon:Gerson Calloway MD. Procedures Performed: 1)Left heart catheterization with selective left and right coronary angiography. 2)Left ventricle angiography 3)Right heart cath 4)Aortogram 5)right femoral angiography with Perclose closure device Pre-operative Diagnosis:NSTEMI, congenital hear disease Post-operative Diagnosis:same Indications: 32 yo M with no known prior cardiac history who presented with chest pain and palpitations. He was found to have an SVT as well as NSTEMI with trop up to 5. A cardiac cath was recommended for coronary evaluation. Upon my review of the echocardiogram, I am not certain of the exact anatomy but the aorta appears to be anterior to the PA and so there is concern for transposition. 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 The pt does not know of his condition and has been active during his life and participated in sports without symptoms. A left and right heart cath was done to further evaluate the pt's condition. Description of Procedure: After informed consent, the patient was brought to the cardiac catheterization lab. The procedure site was prepped and draped in usual manner. The patient was premedicated with versed 1 mg and fentanyl 25 mcg. 10 mL lidocaine was injected into the right groin. Next using the Seldinger technique, the 6 [place] sheath was inserted into the right femoral artery and 7 [place]ian into the right femoral vein. Next using the JL4, selective angiography of the what appears to be just the circumflex artery was obtained. Next the RCA was attempted top be selectively engaged but despite multiple catheters, only nonselective angiography could be obtained.The pigtail was then advanced into the ventricle and hemodynamics obtained. Left ventricle angiography was obtained in [facility] [place] and [place] views. Next an aortogram was also done but did not show a vessel in the LAD territory. Next all equipment was removed and hemostasis was obtained by Perclose for the artery and manual pressure for the vein. Findings: Anatomy/Hemodynamics: LAD: could not be found by selective, nonselective, or aortogram. ?anomalous from unclear origin (?from pulmonary artery) Circumflex: large dominant vessel covering the inferior and inferolateral territory. Otherwise normal Obtuse marginal:normal RCA:small, nondominant, normal LV angiography both in [place] and [facility] [place]: Dilated systemic ventricle which visually appears to be the RV. No VSD. EF ~45% Aortogram: no aortic regurgitation. No vessel seen supplying the LAD territory Systemic ventricle to aorta without gradient LVEDP: 1 mmHg Right heart cath: RA 7,6 (4) RV 38/1, EDP 5 Unable to advance to the PA. A wire was briefly used and caused SVT with initial rate >150 but then dropped back to ~105bpm. RA pressure wave form was different (elevated and large V wave) likely from the slow SVT but an echo was obtained to make sure the wire did not cause complications. No effusion was noted Contrast used:220 mL Fluoroscopy time: Estimated blood loss<10 mL. Specimen: none Grafts/implants: none Complications: none Assessment: Congenital heart disease: ?congenitally corrected TGA. Needs better eval by CT NSTEMI: normal Cx and RCA. LAD could not be engaged. Cardiac CT to eval SVT Plan: -cardiac CT for better anatomic clarification and to evaluate LAD territory GERSON CALLOWAY Apr 24, 2017 14:46
[2017-04-24] MEDS ORDERED: morphine 2 MG INJ IV PRN (15:00)
--- NOTE | 2017-04-24 15:33 | PN ---
Date/Time of Note Date/Time of Note DATE: 04/24/17 TIME: 15:33 Assessment/Plan VTE Prophylaxis VTE Prophylaxis Intervention: SCD's Lines/Catheters IV Catheter Type (from Nrs): Peripheral IV Urinary Cath still in place: No Assessment/Plan Assessment/Plan 32 yo M with h/o ?congenital heart disease? presented with chest pain, found to have NSTEMI -sp cardiac cath today. Results noted and inconclusive.-->CT ordered by mat inspector -cont CV meds (asa/bb/statin) -cont home AED dispo as per cardiology Subjective 24 Hr Interval Summary Free Text/Dictation Pt in phlebotomist medical lab assistant at time of my attempted evaluation Exam/Review of Systems Vital Signs Vitals Vital Signs Date Time Temp Pulse Resp B/P Pulse Ox O2 Delivery O2 Flow Rate FiO2 04/24/17 15:20 108 12 108/83 96 Room Air 04/24/17 14:59 98.4 Intake and Output 04/23/17 04/23/17 04/24/17 15:00 23:00 07:00 Intake Total 500 ml 700 ml Balance 500 ml 700 ml Exam Pt in phlebotomist medical lab assistant at time of my attempted evaluation Results Result Diagram: 04/24/17 0639 04/24/17 0639 Results 24 hrs Laboratory Tests Test 04/24/17 06:39 White Blood Count 7.8 Red Blood Count 4.75 Hemoglobin 13.4 L Hematocrit 40.9 L Mean Corpuscular Volume 86.1 Mean Corpuscular Hemoglobin 28.2 L Mean Corpuscular Hemoglobin Concent 32.8 Red Cell Distribution Width 12.4 Platelet Count 234 Mean Platelet Volume 8.9 Neutrophils % 62.6 Lymphocytes % 26.6 Monocytes % 7.6 Eosinophils % 2.3 Basophils % 0.6 Nucleated Red Blood Cells % 0.0 Neutrophils # 4.9 Lymphocytes # 2.1 Monocytes # 0.6 Eosinophils # 0.2 Basophils # 0.1 Nucleated Red Blood Cells # 0.0 Sodium Level 141 Potassium Level 4.5 Chloride Level 107 Carbon Dioxide Level 27 Anion Gap 12 Blood Urea Nitrogen 13 Creatinine 0.77 Glucose Level 98 Calcium Level 8.6 Medications Medications Current Medications Ondansetron HCl (Zofran Inj) 4 mg Q6H PRN IV NAUSEA AND/OR VOMITING; Start at 09:30 Acetaminophen (Tylenol Tab) 650 mg Q6H PRN PO PAIN LEVEL 1-3 OR FEVER; Start 04/22/17 at 09:30 Acetaminophen/ Hydrocodone Bitart ([place] (5/325)) 1 tab Q6H PRN PO MODERATE PAIN LEVEL 4-6; Start 04/22/17 at 09:30 Morphine Sulfate (morphine) 2 mg Q4H PRN IV SEVERE PAIN LEVEL 7-10; Start at 09:30 Docusate Sodium (Colace) 100 mg Q12H PRN PO CONSTIPATION; Start 04/22/17 at 09 :30 Magnesium Hydroxide (Milk Of Mag) 30 ml DAILY PRN PO CONSTIPATION; Start 04/22 at 09:30 Sodium Biphosphate/ Sodium Phosphate (Fleet Enema) 133 ml DAILY PRN [place] CONSTIPATION; Start 04/22/17 at 09:30 Lorazepam (Ativan) 0.5 mg Q6H PRN IV ANXIETY; Start 04/22/17 at 09:30 Hydralazine HCl (Apresoline) 10 mg Q6H PRN IV ELEVATED BLOOD PRESSURE; Start 04/22/17 at 09:30 Clonidine (Catapres) 0.1 mg Q6H PRN PO ELEVATED BLOOD PRESSURE; Start at 09:30 Nitroglycerin (Nitroglycerin (Sl Tab) 0.4 Mg) 1 tab Q5M PRN SL ANGINA; Start 04/22/17 at 09:30 Atorvastatin Calcium (Lipitor) 80 mg HS PO Last administered on 04/23/17 20: 15; Admin Dose 80 MG; Start 04/22/17 at 21:00 Aspirin (Ecotrin) 325 mg DAILY PO Last administered on 04/24/17 08:40; Admin Dose 325 MG; Start 04/23/17 at 09:00 Metoprolol Tartrate (Lopressor) 25 mg BID PO Last administered on 04/22/17 20 :27; Admin Dose 25 MG; Start 04/22/17 at 21:00 Levetiracetam 500 mg 500 mg BID PO Last administered on 04/24/17 08:40; Admin Dose 500 MG; Start 04/22/17 at 22:30 Sodium Chloride (NS) 1,000 ml @ 100 mls/hr Q10H IV Last administered on 11:01; Admin Dose 100 MLS/HR; Start 10/30/17 at 00:00 Morphine Sulfate 2 mg 2 mg Q2H PRN IV FOR NON CARDIAC PAIN (4-10); Start 04/24 at 15:00 Sodium Chloride (NS) 1,000 ml @ 75 mls/hr [id number] IV ; Start 04/24/17 at 14:45 ; Stop 04/24/17 at 19:44 ADELINE SANTIZO MD Apr 24, 2017 15:33
--- NOTE | 2017-04-24 15:33 | PN ---
Date/Time of Note Date/Time of Note DATE: 04/24/17 TIME: 15:33 Assessment/Plan VTE Prophylaxis VTE Prophylaxis Intervention: SCD's Lines/Catheters IV Catheter Type (from Nrs): Peripheral IV Urinary Cath still in place: No Assessment/Plan Assessment/Plan 32 yo M with h/o ?congenital heart disease? presented with chest pain, found to have NSTEMI -sp cardiac cath today. Results noted and inconclusive.-->CT ordered by vehicle dynamics engineer -cont CV meds (asa/bb/statin) -cont home AED dispo as per cardiology Subjective 24 Hr Interval Summary Free Text/Dictation Pt in chemical laboratory tester at time of my attempted evaluation Exam/Review of Systems Vital Signs Vitals Vital Signs Date Time Temp Pulse Resp B/P Pulse Ox O2 Delivery O2 Flow Rate FiO2 04/24/17 15:20 108 12 108/83 96 Room Air 04/24/17 14:59 98.4 Intake and Output 04/23/17 04/23/17 04/24/17 15:00 23:00 07:00 Intake Total 500 ml 700 ml Balance 500 ml 700 ml Exam Pt in chemical laboratory tester at time of my attempted evaluation Results Result Diagram: 04/24/17 0639 04/24/17 0639 Results 24 hrs Laboratory Tests Test 04/24/17 06:39 White Blood Count 7.8 Red Blood Count 4.75 Hemoglobin 13.4 L Hematocrit 40.9 L Mean Corpuscular Volume 86.1 Mean Corpuscular Hemoglobin 28.2 L Mean Corpuscular Hemoglobin Concent 32.8 Red Cell Distribution Width 12.4 Platelet Count 234 Mean Platelet Volume 8.9 Neutrophils % 62.6 Lymphocytes % 26.6 Monocytes % 7.6 Eosinophils % 2.3 Basophils % 0.6 Nucleated Red Blood Cells % 0.0 Neutrophils # 4.9 Lymphocytes # 2.1 Monocytes # 0.6 Eosinophils # 0.2 Basophils # 0.1 Nucleated Red Blood Cells # 0.0 Sodium Level 141 Potassium Level 4.5 Chloride Level 107 Carbon Dioxide Level 27 Anion Gap 12 Blood Urea Nitrogen 13 Creatinine 0.77 Glucose Level 98 Calcium Level 8.6 Medications Medications Current Medications Ondansetron HCl (Zofran Inj) 4 mg Q6H PRN IV NAUSEA AND/OR VOMITING; Start at 09:30 Acetaminophen (Tylenol Tab) 650 mg Q6H PRN PO PAIN LEVEL 1-3 OR FEVER; Start 04/22/17 at 09:30 Acetaminophen/ Hydrocodone Bitart ([place] (5/325)) 1 tab Q6H PRN PO MODERATE PAIN LEVEL 4-6; Start 04/22/17 at 09:30 Morphine Sulfate (morphine) 2 mg Q4H PRN IV SEVERE PAIN LEVEL 7-10; Start at 09:30 Docusate Sodium (Colace) 100 mg Q12H PRN PO CONSTIPATION; Start 04/22/17 at 09 :30 Magnesium Hydroxide (Milk Of Mag) 30 ml DAILY PRN PO CONSTIPATION; Start 04/22 at 09:30 Sodium Biphosphate/ Sodium Phosphate (Fleet Enema) 133 ml DAILY PRN MD CONSTIPATION; Start 04/22/17 at 09:30 Lorazepam (Ativan) 0.5 mg Q6H PRN IV ANXIETY; Start 04/22/17 at 09:30 Hydralazine HCl (Apresoline) 10 mg Q6H PRN IV ELEVATED BLOOD PRESSURE; Start 04/22/17 at 09:30 Clonidine (Catapres) 0.1 mg Q6H PRN PO ELEVATED BLOOD PRESSURE; Start at 09:30 Nitroglycerin (Nitroglycerin (Sl Tab) 0.4 Mg) 1 tab Q5M PRN SL ANGINA; Start 04/22/17 at 09:30 Atorvastatin Calcium (Lipitor) 80 mg HS PO Last administered on 04/23/17 20: 15; Admin Dose 80 MG; Start 04/22/17 at 21:00 Aspirin (Ecotrin) 325 mg DAILY PO Last administered on 04/24/17 08:40; Admin Dose 325 MG; Start 04/23/17 at 09:00 Metoprolol Tartrate (Lopressor) 25 mg BID PO Last administered on 04/22/17 20 :27; Admin Dose 25 MG; Start 04/22/17 at 21:00 Levetiracetam 500 mg 500 mg BID PO Last administered on 04/24/17 08:40; Admin Dose 500 MG; Start 04/22/17 at 22:30 Sodium Chloride (NS) 1,000 ml @ 100 mls/hr Q10H IV Last administered on 11:01; Admin Dose 100 MLS/HR; Start 10/30/17 at 00:00 Morphine Sulfate 2 mg 2 mg Q2H PRN IV FOR NON CARDIAC PAIN (4-10); Start 04/24 at 15:00 Sodium Chloride (NS) 1,000 ml @ 75 mls/hr [id number] IV ; Start 04/24/17 at 14:45 ; Stop 04/24/17 at 19:44 ADELINE SANTIZO MD Apr 24, 2017 15:33
[2017-04-24] MEDS: ATORVASTATIN 80 MG TAB PO SCH (20:18)
[2017-04-25] VITALS (9 sets, daily range): BP systolic 107–130; BP diastolic 62–80; PULSE 48–113; RESP 17–18
[2017-04-25] MEDS: METOPROLOL 25 MG TAB PO SCH (08:52)
[2017-04-25] MEDS: LEVETIRACETAM 500 MG TAB PO SCH (08:52)
[2017-04-25] MEDS: ASPIRIN (EC) 325 MG TAB PO SCH (08:52)
[2017-04-25] MEDS ORDERED: NITROGLYCERIN AEROSOL (4.9 GM) ONE (11:13)
[2017-04-25] MEDS ORDERED: IOHEXOL 350MG/ML 50 ML BTL ONE (11:46)
[2017-04-25] MEDS ORDERED: IOHEXOL 100 ML ONE (11:46)
[2017-04-25] MEDS ORDERED: SOD CHLORIDE 0.9% 100 ML ONE (11:46)
--- NOTE | 2017-04-25 12:51 | RADRPT ---
PROCEDURE: CTA of the heart and coronary arteries. CLINICAL INDICATION: Chest pain, palpitations COMPARISON: No previous relevant images are available for comparison. TECHNIQUE: Multiphasic ECG-gated volumetric acquisition from the ascending aorta to the diaphragm pe rformed with intravenous contrast on a high-resolution multi detector scanner with multiphasic recon structions. Multiplanar reconstructions, three-dimensional reconstructions, as well as maximal inten sity projection images are produced and reviewed. One or more of the following dose reduction techni ques were used: Automated exposure control; Adjustment of the mA and/or kV according to patient size ; Use of iterative reconstruction technique; ECG dose modulation. CTDI = 8, 32, 83 mGy. DLP = 1951 m Gy-cm. Stenosis classification of vessels greater than 1.5 mm in diameter: None 0%, Minimal 1-24%, Mild 25- 49%, Moderate 50-69%, Severe 70-99%, Occluded 100% CONTRAST: 100 mL of Omnipaque 350 intravenously without adverse event. FINDINGS: L-type transposition of the great arteries is present. The right-sided atrium communicates with the right-sided ventricle which has morphologic left ventricular features and communicates with the main pulmonary artery. The left-sided atrium communicates with the left-sided ventricle which has morpho logic right ventricular features and communicates with the aorta. Coronary arteries arise from the p osterior margins of the posterior - right sided and posterior - left sided sinuses of Valsalva with the more anterior sinus being noncoronary. The coronary artery arising from the right sided coronary sinus supplies the morphologically left-sided ventricle and the coronary artery arising from the le ft sided coronary sinus supplies the morphologically right-sided ventricle. The coronary artery to t he morphologically left ventricle has a small branch which runs within the atrioventricular groove a nd larger ventricular branches which are located more anteriorly. The coronary artery to the morphologically and right ventricle divides into a large branch which runs dorsally within the atrio ventricular groove to give a posterior lateral branch and a second primary division which anteriorly descends. Overall exam quality and angiographic enhancement: Excellent. Origins and course of the coronary arteries: Normal. Coronary artery system dominance pattern (according to ventricular morphology): Right Total calcium score: 0 Not fully diagnostic segments due to artifacts: None. LCX: Patent with no evidence of plaque. LV branches: Patent with no evidence of plaque. RMCA: Patent with no evidence of plaque. RI: Patent with no evidence of plaque. RAD: Patent with no evidence of plaque. RV branches: Patent with no evidence of plaque. RCX: Patent with no evidence of plaque. RPLB: Patent with no evidence of plaque. RPDA: Patent with no evidence of plaque. Pericardium: Normal. Pericardial effusion: None. Heart size: Normal. Aortic valve: Trileaflet morphology. Normal systolic excursion. Normal diastolic coaptation. No evid ence of thickening or calcification. Myocardial attenuation: Possible small membranous ventricular septal defect measuring 2 - 3 mm. Thi nning of the apical portion of the interventricular septum is present, small additional ventricular septal defect cannot be completely excluded. Intracardiac enhancement: No evidence of mass or thrombus. Extracardiac findings: Visualized thoracic aorta: Normal caliber. No significant atherosclerotic changes. Supra-aortic bran stanton pattern is outside of the field of view of the examination. Pulmonary arteries: Normal caliber. No evidence of central filling defect. Pulmonary veins: Conventional pulmonary venous return. Thoracic veins: Right and left-sided superior vena cava are present with the left-sided superior ve na cava communicating with the coronary sinus. Lungs: No acute appearing air space infiltrates. No suspicious pulmonary nodules. Visualized mediastinum: No mass or fluid collection. No lymphadenopathy. Visualized osseous structures: Normal. Visualized upper abdomen: Normal. Other findings: None. IMPRESSION: L-type transposition of the great arteries is present. Coronary arteries arise from the posterior ma rgins of the posterior - right sided and posterior - left sided sinuses of Valsalva with the more an terior sinus being noncoronary. The right and left coronary systems are normal in appearance and completely free of plaque. Possible small membranous and distal muscular interventricular septal defects, this can be further e valuated by echocardiography. Right-sided and left-sided superior vena cava with the left-sided superior vena cava communicating w ith the coronary sinus. Supra-aortic branching pattern is outside of the field of view of the examination. RPTAT: AADD .Robert Pacheco MD, Date Time Electronically viewed and signed by .Robert Pacheco MD, on 04/25/2017 12:51 .B/
--- NOTE | 2017-04-25 14:41 | RADRPT ---
Echocardiogram Report Patient Name: BENJAMIN MARTIN Gender: Male Date: 1985 Study Date: 23-Apr-2017 Business Line Controller: PARTH Location: I Ref. Physician: SHAUNA ALAS Quality: Adequate Procedures: Transthoracic echocardiogram with complete 2D, M-Mode, and Doppler examination. Indications: SVT. Findings Left Ventricle: The morphologic left ventricle serves as the pulmonic ventricle. It is normal in size and systolic function. Right Ventricle: The morphologic right ventricle serves as the systemic ventricle. It is hypertrophied. There is moderate systolic dysfunction with global hypokinesis. Estimated ejection fraction if 40-45%. Left Atrium: The left atrium appears subdivided by a thin membrane, consistent with cor triatriatum sinistrum. Right Atrium: The right atrium is normal in size. Atrial Septum: Normal atrial septum. Ventricular septum: Normal/intact ventricular septum. Mitral Valve: The mitral valve serves as the pulmonic AV valve. It has normal structure and function. There is trace regurgitation. Aortic Valve: Normal appearance of the aortic valve leaflets. No significant aortic stenosis or insufficiency. Tricuspid Valve: The tricuspid valve serves as the systemic AV valve. It has normal structure and function. There is mild regurgitation. Pulmonic Valve: Normal pulmonic valve structure and function. There is trace pulmonic regurgitation. Pericardium: Normal pericardium with no significant pericardial effusion. Aorta: Normal aortic root size. The position of the aortic valve and aortic root coming off the left ventricle is more anterior to the pulmonic valve and main pulmonary artery. This is best appreciated in the short axis view. 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 Aortic arch is normal, appears to be a normally seated leftward arch. IVC: Normal size and normal respiratory collapse consistent with normal right atrial pressure. Pulmonary Artery: Normal pulmonary artery size. 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 2.The morphologic left ventricle serves as the systemic ventricle. There is moderate systolic dysfunction with global hypokinesis. Estimated left ventricular ejection fraction of 40-45%. 3.Cor triatriatum sinistrum. Electronically Signed By: Parmjit Bryant 25-Apr-2017 14:41:24 -0700 Patient Name: BENJAMIN MARTIN Study Date: 23-Apr-2017 [id number]
--- NOTE | 2017-04-25 14:41 | RADRPT ---
Echocardiogram Report Patient Name: BENJAMIN MARTIN Gender: Male Date: 1985 Study Date: 23-Apr-2017 Dining Host: PARTH Location: I Ref. Physician: SHAUNA ALAS Quality: Adequate Procedures: Transthoracic echocardiogram with complete 2D, M-Mode, and Doppler examination. Indications: SVT. Findings Left Ventricle: The morphologic left ventricle serves as the pulmonic ventricle. It is normal in size and systolic function. Right Ventricle: The morphologic right ventricle serves as the systemic ventricle. It is hypertrophied. There is moderate systolic dysfunction with global hypokinesis. Estimated ejection fraction if 40-45%. Left Atrium: The left atrium appears subdivided by a thin membrane, consistent with cor triatriatum sinistrum. Right Atrium: The right atrium is normal in size. Atrial Septum: Normal atrial septum. Ventricular septum: Normal/intact ventricular septum. Mitral Valve: The mitral valve serves as the pulmonic AV valve. It has normal structure and function. There is trace regurgitation. Aortic Valve: Normal appearance of the aortic valve leaflets. No significant aortic stenosis or insufficiency. Tricuspid Valve: The tricuspid valve serves as the systemic AV valve. It has normal structure and function. There is mild regurgitation. Pulmonic Valve: Normal pulmonic valve structure and function. There is trace pulmonic regurgitation. Pericardium: Normal pericardium with no significant pericardial effusion. Aorta: Normal aortic root size. The position of the aortic valve and aortic root coming off the left ventricle is more anterior to the pulmonic valve and main pulmonary artery. This is best appreciated in the short axis view. 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 Aortic arch is normal, appears to be a normally seated leftward arch. IVC: Normal size and normal respiratory collapse consistent with normal right atrial pressure. Pulmonary Artery: Normal pulmonary artery size. 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 2.The morphologic left ventricle serves as the systemic ventricle. There is moderate systolic dysfunction with global hypokinesis. Estimated left ventricular ejection fraction of 40-45%. 3.Cor triatriatum sinistrum. Electronically Signed By: Parmjit Bryant 25-Apr-2017 14:41:24 -0700 Patient Name: BENJAMIN MARTIN Study Date: 23-Apr-2017 [id number]
--- NOTE | 2017-04-25 15:52 | DS ---
Date/Time of Note Date/Time of Note DATE: 04/25/17 TIME: 15:52 Discharge Summary Admission/Discharge Info Admit Date/Time Apr 22, 2017 at 11:28 Discharge Date/Time Discharge Diagnosis chest pain Patient Condition: Stable Consults cardiology Procedures [facility] 10.30 normal Cx and RCA. LAD could not be engaged. cardiac CT 10. IMPRESSION: L-type transposition of the great arteries is present. Coronary arteries arise from the posterior margins of the posterior - right sided and posterior - left sided sinuses of Valsalva with the more anterior sinus being noncoronary. The right and left coronary systems are normal in appearance and completely free of plaque. Possible small membranous and distal muscular interventricular septal defects, this can be further evaluated by echocardiography. Right-sided and left-sided superior vena cava with the left-sided superior vena cava communicating with the coronary sinus. Supra-aortic branching pattern is outside of the field of view of the examination. Hx of Present Illness A 32-year-old male with past medical history of seizure, possible hypertension, and prior SVT, who was feeling palpitations and chest pressure that began 24 hours ago. He had some vomiting symptoms, nonbilious, nonbloody. Denied any nausea. No shortness of breath. No diarrhea or constipation. No upper or lower GI bleeding. No abdominal pain. No headaches or dizziness. He was concerned though about his palpitations and chest pressure and he decided to come into the ER. When he initially arrived, his heart rate was found to be in the 200 to 210 range without any intervention. However, the patient's heart rate came down to around 80 on its own. He was thought to be in SVT, but again, this appeared to break by itself. No sweating symptoms as well. The patient states he was last treated at [facility]. He believes he made a visit to the ER about 3 months ago and has been taking as needed metoprolol at home. He does not take it every day, and when these symptoms began 24 hours, he also took a dose of metoprolol that did not relieve his symptoms. Hospital Course Pt admitted for chest pressure, found to have positive trop. Pt seen by cardiology. [facility] nondiagnostic so cardiac CT was performed which showed transposition of great arteries, patent vasculature. Pt discharged on asa and bb, no statin as no CAD found on imaging. Pt will f/u with cardiology. Home Meds Reported Medications Acetaminophen* (Acetaminophen*) 500 MG Extra Strength Tablet, 500 MG PO Q4H Y for PAIN AND OR ELEVATED TEMP, TAB 04/22/17 Metoprolol Succinate* (Toprol XL*) Unknown Strength Tab.sr.24h, PO DAILY, #30 TAB 04/22/17 Levetiracetam* (Keppra*) 500 Mg Tablet, 500 MG PO DAILY, TAB 12/06/16 Follow-up Plan cardiology within [address] rodrigues Office Address [address] [place] [address]. [address] [place] [address] Office Primary Care Provider Care Physician No Primary Time spent on discharge: > 30 minutes Pending Labs Laboratory Tests Test 04/25/17 07:41 White Blood Count 10.510^3/ul (4.8-10.8) Red Blood Count 4.7110^6/ul (4.70-6.10) Hemoglobin 13.3g/dl (14.0-18.0) Hematocrit 40.8% (42.0-52.0) Mean Corpuscular Volume 86.6fl (82.0-101.0) Mean Corpuscular Hemoglobin 28.2pg (29.0-33.0) Mean Corpuscular Hemoglobin Concent 32.6g/dl (32.0-37.0) Red Cell Distribution Width 12.5% (11.5-14.5) Platelet Count 00945^3/UL (140-415) Mean Platelet Volume 9.2fl (7.4-10.4) Neutrophils % 71.8% (39.0-77.0) Lymphocytes % 18.1% (15.0-51.0) Monocytes % 7.6% (0.0-11.0) Eosinophils % 1.6% (0.0-7.0) Basophils % 0.5% (0.0-2.0) Nucleated Red Blood Cells % 0.0/100WBC (0.0-0.0) Neutrophils # 7.510^3/ul (1.6-7.5) Lymphocytes # 1.910^3/ul (0.8-2.9) Monocytes # 0.810^3/ul (0.3-0.9) Eosinophils # 0.210^3/ul (0.0-0.5) Basophils # 0.110^3/ul (0.0-0.1) Nucleated Red Blood Cells # 0.010^3/ul (0.0-0.0) Sodium Level 141mmol/L (135-144) Potassium Level 4.5mmol/L (3.5-5.1) Chloride Level 104mmol/L (97-110) Carbon Dioxide Level 26mmol/L (21-31) Anion Gap 16 (8-16) Blood Urea Nitrogen 15mg/dl (7-20) Creatinine 0.81mg/dl (0.61-1.24) Glucose Level 107mg/dl (70-220) Calcium Level 8.6mg/dl (8.4-10.2) Copies To: CC: JAH RODRIGUES ELLEN MD Apr 25, 2017 15:52 ADELINE SANTIZO MD Apr 25, 2017 15:52
--- NOTE | 2017-04-25 15:52 | DS ---
Date/Time of Note Date/Time of Note DATE: 04/25/17 TIME: 15:52 Discharge Summary Admission/Discharge Info Admit Date/Time Apr 22, 2017 at 11:28 Discharge Date/Time Discharge Diagnosis chest pain Patient Condition: Stable Consults cardiology Procedures [facility] 10.30 normal Cx and RCA. LAD could not be engaged. cardiac CT 10. IMPRESSION: L-type transposition of the great arteries is present. Coronary arteries arise from the posterior margins of the posterior - right sided and posterior - left sided sinuses of Valsalva with the more anterior sinus being noncoronary. The right and left coronary systems are normal in appearance and completely free of plaque. Possible small membranous and distal muscular interventricular septal defects, this can be further evaluated by echocardiography. Right-sided and left-sided superior vena cava with the left-sided superior vena cava communicating with the coronary sinus. Supra-aortic branching pattern is outside of the field of view of the examination. Hx of Present Illness A 32-year-old male with past medical history of seizure, possible hypertension, and prior SVT, who was feeling palpitations and chest pressure that began 24 hours ago. He had some vomiting symptoms, nonbilious, nonbloody. Denied any nausea. No shortness of breath. No diarrhea or constipation. No upper or lower GI bleeding. No abdominal pain. No headaches or dizziness. He was concerned though about his palpitations and chest pressure and he decided to come into the ER. When he initially arrived, his heart rate was found to be in the 200 to 210 range without any intervention. However, the patient's heart rate came down to around 80 on its own. He was thought to be in SVT, but again, this appeared to break by itself. No sweating symptoms as well. The patient states he was last treated at [facility]. He believes he made a visit to the ER about 3 months ago and has been taking as needed metoprolol at home. He does not take it every day, and when these symptoms began 24 hours, he also took a dose of metoprolol that did not relieve his symptoms. Hospital Course Pt admitted for chest pressure, found to have positive trop. Pt seen by cardiology. [facility] nondiagnostic so cardiac CT was performed which showed transposition of great arteries, patent vasculature. Pt discharged on asa and bb, no statin as no CAD found on imaging. Pt will f/u with cardiology. Home Meds Reported Medications Acetaminophen* (Acetaminophen*) 500 MG Extra Strength Tablet, 500 MG PO Q4H Y for PAIN AND OR ELEVATED TEMP, TAB 04/22/17 Metoprolol Succinate* (Toprol XL*) Unknown Strength Tab.sr.24h, PO DAILY, #30 TAB 04/22/17 Levetiracetam* (Keppra*) 500 Mg Tablet, 500 MG PO DAILY, TAB 12/06/16 Follow-up Plan cardiology within [address] rodrigues Office Address [address] [place] [address]. [address] [place] [address] Office Primary Care Provider Care Physician No Primary Time spent on discharge: > 30 minutes Pending Labs Laboratory Tests Test 04/25/17 07:41 White Blood Count 10.510^3/ul (4.8-10.8) Red Blood Count 4.7110^6/ul (4.70-6.10) Hemoglobin 13.3g/dl (14.0-18.0) Hematocrit 40.8% (42.0-52.0) Mean Corpuscular Volume 86.6fl (82.0-101.0) Mean Corpuscular Hemoglobin 28.2pg (29.0-33.0) Mean Corpuscular Hemoglobin Concent 32.6g/dl (32.0-37.0) Red Cell Distribution Width 12.5% (11.5-14.5) Platelet Count 19109^3/UL (140-415) Mean Platelet Volume 9.2fl (7.4-10.4) Neutrophils % 71.8% (39.0-77.0) Lymphocytes % 18.1% (15.0-51.0) Monocytes % 7.6% (0.0-11.0) Eosinophils % 1.6% (0.0-7.0) Basophils % 0.5% (0.0-2.0) Nucleated Red Blood Cells % 0.0/100WBC (0.0-0.0) Neutrophils # 7.510^3/ul (1.6-7.5) Lymphocytes # 1.910^3/ul (0.8-2.9) Monocytes # 0.810^3/ul (0.3-0.9) Eosinophils # 0.210^3/ul (0.0-0.5) Basophils # 0.110^3/ul (0.0-0.1) Nucleated Red Blood Cells # 0.010^3/ul (0.0-0.0) Sodium Level 141mmol/L (135-144) Potassium Level 4.5mmol/L (3.5-5.1) Chloride Level 104mmol/L (97-110) Carbon Dioxide Level 26mmol/L (21-31) Anion Gap 16 (8-16) Blood Urea Nitrogen 15mg/dl (7-20) Creatinine 0.81mg/dl (0.61-1.24) Glucose Level 107mg/dl (70-220) Calcium Level 8.6mg/dl (8.4-10.2) Copies To: CC: JAH RODRIGUES ELLEN MD Apr 25, 2017 15:52 ADELINE SANTIZO MD Apr 25, 2017 15:52
[2017-04-25] MEDS ORDERED: ASPI325T32 PO (15:58)
[2017-04-25] MEDS ORDERED: METO-448 PO (15:58)
--- NOTE | 2017-04-25 15:58 | CONS ---
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, [facility]) Problems: Consultation Date/Type/Reason Admit Date/Time Apr 22, 2017 at 11:28 Type of Consultation: Cardiology 24 HR Interval Summary Free Text/Dictation No acute events. Denies chest pain or palpitations. Echocardiogram, coronary angiogram, and cardiac CTA results reviewed. Detailed Summary Additional Comments 14 point review of systems without changes. Exam/Review of Systems Vital Signs Vitals Vital Signs Date Time Temp Pulse Resp B/P Pulse Ox O2 Delivery O2 Flow Rate FiO2 04/25/17 12:20 98.0 53 18 108/68 98 04/24/17 15:55 Room Air Intake and Output 04/24/17 04/24/17 04/25/17 15:00 23:00 07:00 Intake Total 200 ml 300 ml Balance 200 ml 300 ml Exam Constitutional: alert, well developed Psych: nl mood/affect, no complaints Head: atraumatic, normocephalic Eyes: nl conjunctiva, nl lids ENMT: nl external ears & nose, nl nasal mucosa & septum Neck: non-tender, supple, No jvd Respiratory: clear to auscultation, normal air movement Cardiovascular: regular rate and rhythm, systolic murmur Gastrointestinal: non-tender, soft Musculoskeletal: nl extremities to inspection, No joint tenderness Extremities: No clubbing, No cyanosis, No edema Neurological: nl mental status, nl speech Skin: nl turgor Results Result Diagram: 04/25/17 0741 04/25/17 0741 Results 24 hrs Laboratory Tests Test 04/25/17 07:41 White Blood Count 10.5 # Red Blood Count 4.71 Hemoglobin 13.3 L Hematocrit 40.8 L Mean Corpuscular Volume 86.6 Mean Corpuscular Hemoglobin 28.2 L Mean Corpuscular Hemoglobin Concent 32.6 Red Cell Distribution Width 12.5 Platelet Count 239 Mean Platelet Volume 9.2 Neutrophils % 71.8 Lymphocytes % 18.1 Monocytes % 7.6 Eosinophils % 1.6 Basophils % 0.5 Nucleated Red Blood Cells % 0.0 Neutrophils # 7.5 Lymphocytes # 1.9 Monocytes # 0.8 Eosinophils # 0.2 Basophils # 0.1 Nucleated Red Blood Cells # 0.0 Sodium Level 141 Potassium Level 4.5 Chloride Level 104 Carbon Dioxide Level 26 Anion Gap 16 Blood Urea Nitrogen 15 Creatinine 0.81 Glucose Level 107 Calcium Level 8.6 Medications Medications Current Medications Ondansetron HCl (Zofran Inj) 4 mg Q6H PRN IV NAUSEA AND/OR VOMITING; Start at 09:30 Acetaminophen (Tylenol Tab) 650 mg Q6H PRN PO PAIN LEVEL 1-3 OR FEVER Last administered on 04/25/17 11:52; Admin Dose 650 MG; Start 04/22/17 at 09:30 Acetaminophen/ Hydrocodone Bitart ([place] (5/325)) 1 tab Q6H PRN PO MODERATE PAIN LEVEL 4-6; Start 04/22/17 at 09:30 Morphine Sulfate (morphine) 2 mg Q4H PRN IV SEVERE PAIN LEVEL 7-10; Start at 09:30 Docusate Sodium (Colace) 100 mg Q12H PRN PO CONSTIPATION; Start 04/22/17 at 09 :30 Magnesium Hydroxide (Milk Of Mag) 30 ml DAILY PRN PO CONSTIPATION; Start 04/22 at 09:30 Sodium Biphosphate/ Sodium Phosphate (Fleet Enema) 133 ml DAILY PRN [place] CONSTIPATION; Start 04/22/17 at 09:30 Clonidine (Catapres) 0.1 mg Q6H PRN PO ELEVATED BLOOD PRESSURE; Start at 09:30 Nitroglycerin (Nitroglycerin (Sl Tab) 0.4 Mg) 1 tab Q5M PRN SL ANGINA; Start 04/22/17 at 09:30 Atorvastatin Calcium (Lipitor) 80 mg HS PO Last administered on 04/24/17 20: 18; Admin Dose 80 MG; Start 04/22/17 at 21:00 Aspirin (Ecotrin) 325 mg DAILY PO Last administered on 04/25/17 08:52; Admin Dose 325 MG; Start 04/23/17 at 09:00 Metoprolol Tartrate (Lopressor) 25 mg BID PO Last administered on 04/25/17 08 :52; Admin Dose 25 MG; Start 04/22/17 at 21:00 Levetiracetam (Keppra) 500 mg BID PO Last administered on 04/25/17 08:52; Admin Dose 500 MG; Start 04/22/17 at 22:30 Morphine Sulfate (morphine) 2 mg Q2H PRN IV FOR NON CARDIAC PAIN (4-10); Start 04/24/17 at 15:00 KIMBERLEY JEFFERSON MD Apr 25, 2017 15:57
--- NOTE | 2017-04-25 16:02 | PDOCDIS ---
Discharge Instructions DIAGNOSIS Discharge Diagnosis chest pain CONDITION Patient Condition: Stable HOME CARE INSTRUCTIONS: Special Diet: Cardiac FOLLOW UP/APPOINTMENTS Follow-up Plan cardiology within [address] rodrigues Office Address [address] [place] [address]. [address] [place] [address] Office ADELINE SANTIZO MD Apr 25, 2017 16:02
--- NOTE | 2017-04-25 16:02 | PDOCDIS ---
Discharge Instructions DIAGNOSIS Discharge Diagnosis chest pain CONDITION Patient Condition: Stable HOME CARE INSTRUCTIONS: Special Diet: Cardiac FOLLOW UP/APPOINTMENTS Follow-up Plan cardiology within [address] rodrigues Office Address [address] [place] [address]. [address] [place] [address] Office ADELINE SANTIZO MD Apr 25, 2017 16:02
[2017-04-25] MEDS ORDERED: CARV3.1260 PO (16:28)
[2017-04-25] MEDS ORDERED: LISI2.5T59 PO (16:33)
[2017-04-25] MEDS ORDERED: ZOLPIDEM 5 MG TAB PO ONE (21:00)
[2017-04-26] MEDS ORDERED: LISINOPRIL 5 MG TAB PO SCH (09:00)
== END 2017-04-25 18:00 | disposition home or self-care (01) | DRG 281 ==
LOC: E/R 05:12 → MS3 11:28 → MS4 17:01
PROVIDERS: ADMIT Internal Medicine; ATTEND Internal Medicine
PROC: B3101ZZ Fluoroscopy of Thoracic Aorta using Low Osmolar Contrast (ICD-10-PCS; 2017-04-24)
PROC: B2111ZZ Fluoroscopy of Multiple Coronary Arteries using Low Osmolar Contrast (ICD-10-PCS; 2017-04-24)
PROC: B2151ZZ Fluoroscopy of Left Heart using Low Osmolar Contrast (ICD-10-PCS; 2017-04-24)
PROC: 4A023N7 Measurement of Cardiac Sampling and Pressure, Left Heart, Percutaneous Approach (ICD-10-PCS; principal; 2017-04-24 14:30)
DX: I21.4 Non-ST elevation (NSTEMI) myocardial infarction (principal); I47.1 Supraventricular tachycardia; I10 Essential (primary) hypertension; G40.909 Epilepsy, unspecified, not intractable, without status epilepticus; Q24.9 Congenital malformation of heart, unspecified
CPT/HCPCS: 36415; 71010; 75574; 80048; 80053; 80061; 81001; 82550; 82553; 83036; 83690; 83735; 84100; 84439; 84443; 84484; 85025; 93005; 93306; 93460; 96374; C1887; J0153; J1644; J1650; J2250; J3010; J3475; J7030; Q9967